=== PATIENT | male | born 1940 | race Asian ===

== ENCOUNTER 2017-12-01 13:52 | Inpatient (IN) | payer OTHER, MEDICARE ==
--- NOTE | 2017-12-01 14:26 | PDOC ---
History of Present Illness - General Chief Complaint: Irregular Heart Beat Stated Complaint: PALPITATIONS Time Seen by Provider: 12/01/17 14:24 History Source: Patient Exam Limitations: No Limitations - History of Present Illness Initial Comments: 12/01/17 14:37 CHIEF COMPLAINT: Palpitations HISTORY OF PRESENT ILLNESS: This is a 77-year-old male with a history of HTN, HLD, and NIDDM who presents with palpitations and mild diaphoresis since yesterday. Symptoms started while he was brushing his teeth and have been persistent. He reports he has had similar symptoms intermittently for the past year, initially once a month, and now more frequently. He denies shortness of breath, chest pain, nausea/vomiting, lower extremity edema, fevers/chills, or any other symptoms. Vital signs on arrival are notable for heart rate of 148, irregular. PCP: Dr. Bailey Smoking: None Alcohol: Never Social history: , works as a manual lathe machinist. REVIEW OF SYSTEMS: GENERAL/CONSTITUTIONAL: No fever or chills. No weakness. No weight change. HEAD, EYES, EARS, NOSE AND THROAT: No change in vision. No ear pain or discharge. No sore throat. CARDIOVASCULAR: See HPI. RESPIRATORY: No cough, wheezing, or shortness of breath. GASTROINTESTINAL: No nausea, vomiting, diarrhea or constipation. GENITOURINARY: No dysuria, frequency, or change in urination. MUSCULOSKELETAL: No joint or muscle swelling or pain. No neck or back pain. SKIN: No rash or easy bruising. NEUROLOGIC: No headache, vertigo, loss of consciousness, or loss of sensation. PSYCHIATRIC: No depression or anxiety. ENDOCRINE: No increased thirst. No abnormal weight change. HEMATOLOGIC/LYMPHATIC: No anemia, easy bleeding, or history of blood clots. ALLERGIC/IMMUNOLOGIC: No hives or skin allergy. No latex allergy. PHYSICAL EXAM: GENERAL: The patient is awake, alert, and fully oriented, in no acute distress. HEAD: Normal with no signs of trauma. ENT: Pupils equal, round and reactive to light, extraocular movements intact, sclera anicteric, conjunctiva clear. Neck supple. LUNGS: Clear to auscultation bilaterally. Normal excursion. No respiratory distress or use of accessory muscles. CV: Irregular rhythm, tachycardic, S1/S2, no MRG. Cap refill < 2 sec. ABDOMEN: Soft, non-distended, non-tender. EXTREMITIES: Normal range of motion, no edema. NEUROLOGICAL: Normal speech, normal gait. CN II-XII grossly intact. PSYCH: Normal mood, normal affect. SKIN: Warm, moist, normal turgor, no rashes or lesions noted. Past History - Past Medical History Allergies/Adverse Reactions: Allergies Allergy/AdvReac Type Severity Reaction Status Date / Time No Known Allergies Allergy Verified 12/01/17 14:01 Home Medications: Ambulatory Orders Apixaban [Eliquis] 5 mg PO BID #30 tablet 12/01/17 Aspirin 81 mg PO DAILY 12/01/17 Diltiazem [Cardizem -] 30 mg PO QID #28 tablet 12/01/17 Glimepiride 2 mg PO ASDIR 12/01/17 Losartan Potassium 50 mg PO DAILY 12/01/17 Metformin HCl [Metformin HCl ER] 1,000 mg PO ASDIR 12/01/17 Metoprolol Succinate 50 mg PO ASDIR 12/01/17 Simvastatin 20 mg PO DAILY 12/01/17 COPD: No Diabetes: Yes (NIDM) HTN: Yes Hypercholesterolemia: Yes - Immunization History Immunization Up to Date: Yes - Suicide/Smoking/Psychosocial Hx Smoking History: Never smoked Information on smoking cessation initiated: No Hx Alcohol Use: No Drug/Substance Use Hx: No Substance Use Type: None *Physical Exam - Vital Signs Last Vital Signs Temp Pulse Resp BP Pulse Ox 98.2 F 141 H 18 118/62 98 12/01/17 14:02 12/01/17 14:02 12/01/17 14:02 12/01/17 14:02 12/01/17 14:02 ED Treatment Course - LABORATORY CBC & Chemistry Diagram: 12/02/17 07:20 12/02/17 07:20 - RADIOLOGY Radiology Studies Ordered: Category Date Time Status CHEST X-RAY PORTABLE* [RAD] Stat Radiology 12/01/17 14:25 Ordered Medical Decision Making - Medical Decision Making 12/01/17 14:43 A/P: 77-year-old male with palpitations and tachycardia (HR 140-160 on monitor). EKG shows narrow complex tachycardia, likely aflutter with 2:1 conduction. Will give Cardizem 10 mg IV push (patient is normotensive) and repeat EKG. -Chest x-ray -Labs including CBC, CMP, troponin, TSH, BNP -Echocardiogram -Reassess 12/01/17 14:50 HR 125-135 after Cardizem. Repeat blood pressure 128/74. Will give additional 10 mg Cardizem. 12/01/17 15:01 Repeat HR 105-115 at rest. Patient is asymptomatic. Repeat EKG: Atrial flutter with ventricular rate 113. 12/01/17 15:07 [id number]. Will give Lovenox pending echo. Will request telemetry observation to follow up echocardiogram, ensure rate control, and initiate anticoagulation. 12/01/17 15:31 Blood glucose 369. Regular insulin 8 units sq ordered. 12/01/17 16:48 Reviewed anticoagulation risks/benefits and need for observation using [employer] Customer Training Specialist [id number]. Discussed with Dr. Bailey. Ventricular rate in 150s. Will start Cardizem gtt. *DC/Admit/Observation/Transfer Diagnosis at time of Disposition: Atrial flutter with rapid ventricular response - Discharge Dispostion Condition at time of disposition: Guarded Decision to Admit order: Yes - Prescriptions - Referrals - Patient Instructions - Post Discharge Activity
[2017-12-01] MEDS ORDERED: dilTIAZem HCL 50 MG/10 ML - 10 ML VIAL IVPUSH ONE ×2 (14:28→14:50)
[2017-12-01 14:44] LABS: BASO % 0.9 % (0-2.0); HEMATOCRIT 35.4 % (35.4-49); HEMOGLOBIN 11.5 GM/dL (11.7-16.9); LYMPH % 22.3 % (8-40); MCH 28.2 pg (25.7-33.7); MCHC 32.4 g/dl (32.0-35.9); MEAN CELL VOLUME 87.1 fl (80-96); MONO % 5.3 % (3.8-10.2); NEUT % 67.5 % (42.8-82.8); PLATELET COUNT 312 K/MM3 (134-434); RBC 4.06 M/mm3 (4.00-5.60); RDW 13.1 % (11.9-15.9); WHITE BLOOD COUNT 9.3 K/mm3 (4.0-10.0)
[2017-12-01 14:51] LABS: INR 0.97 (0.83-1.09); PROTHROMBIN TIME (PATIENT) 11.4 SEC (9.7-13.0)
[2017-12-01] MEDS ORDERED: dilTIAZem HCL 30 MG TABLET (FP) PO ONE (15:00)
[2017-12-01] MEDS ORDERED: SODIUM CHLORIDE 1,000 ML IV SCH (15:00)
[2017-12-01] MEDS ORDERED: dilTIAZem HCL 30 MG TABLET (FP) ONE (15:03)
[2017-12-01] MEDS ORDERED: ENOXAPARIN NA (PORCINE) 80 MG/0.8 ML DISP.SYRIN SQ ONE (15:11)
[2017-12-01] MEDS ORDERED: ENOXAPARIN NA (PORCINE) 30 MG/0.3 ML DISP.SYRIN SQ ONE (15:20)
[2017-12-01] MEDS ORDERED: ENOXAPARIN NA (PORCINE) 40 MG/0.4 ML DISP.SYRIN SQ ONE (15:21)
[2017-12-01 15:25] LABS: ALBUMIN 3.5 g/dl (3.4-5.0); ALK PHOS 95 U/L (45-117); ANION GAP 9 MMOL/L (8-16); BILIRUBIN,TOTAL 0.2 mg/dL (0.2-1); BLOOD UREA NITROGEN 19 mg/dL (7-18); CALCIUM 8.9 mg/dL (8.5-10.1); CHLORIDE 103 mmol/L (98-107); CO2 22 mmol/L (21-32); CREATININE 1.2 mg/dL (0.55-1.3); POTASSIUM 4.4 mmol/L (3.5-5.1); SGOT/AST 11 U/L (15-37); SGPT/ALT 17 U/L (13-61); SODIUM 134 mmol/L (136-145); TOT PROT 7.2 g/dl (6.4-8.2)
[2017-12-01 15:27] LABS: GLUCOSE,RANDOM 369 mg/dL (74-106)
[2017-12-01] MEDS ORDERED: INSULIN REGULAR HUMAN 100 UNITS/ML *VIAL SQ ONE (15:30)
[2017-12-01] MEDS ORDERED: INSULIN (NOVOLOG) ASPART 100 UNITS/ML 10ML VIAL ONE ×3 (15:34→22:42)
[2017-12-01] MEDS: DILTIAZEM INJECTION 125 MG in SODIUM CHLORIDE 100 ML IVPB SCH (17:44)
--- NOTE | 2017-12-01 18:39 | HP ---
CHIEF COMPLAINT: palpitations PCP: Dr. Bailey HISTORY OF PRESENT ILLNESS: Patient is a 77 year old male with a past medical history of hypertension, hyperlipidemia and diabetes. He presents to the ED today with complaints of palpitations and mild diaphoresis. Patient reports a history of feeling frequent palpitations in the past year that spontaneously ceased when he would lay down and rest. However, in the past few weeks, the palpitations became more frequent and now with mild diaphoresis. He denies any chest pain, denies shortness of breath, nausea or vomiting. No abdominal pain, fever or chills. In the ED he was mildly anxious and needed frequent encouragement to allow us to treat him. Explained to him that untreated atrial fibrillation puts him at risk for stroke. Explained plan of care and that he needs to be evaluated by a sterilizer machine operator. On manager cardiac cath, he remains in atrial fibrillation with RVR between 110-150s. He was given Cardizem 10mg iv pushes in the ED and now on a cardizem drip. ER course was notable for: (1) atrial fibrillation (2) cardizem drip, cardizem 10mg iv pushes (3) lovenox 70mg PAST MEDICAL HISTORY: hypertension, hyperlipidemia and diabetes Social History: Smoking: n/a Alcohol: n/a Drugs: n/a Family History: Allergies No Known Allergies Allergy (Verified 12/01/17 14:01 HOME MEDICATIONS: Home Medications Medication Instructions Recorded Apixaban [Eliquis] 5 mg PO BID #30 tablet 12/01/17 Aspirin 81 mg PO DAILY 12/01/17 Diltiazem [Cardizem -] 30 mg PO QID #28 tablet 12/01/17 Glimepiride 2 mg PO ASDIR 12/01/17 Losartan Potassium 50 mg PO DAILY 12/01/17 Metformin HCl [Metformin HCl ER] 1,000 mg PO ASDIR 12/01/17 Metoprolol Succinate 50 mg PO ASDIR 12/01/17 Simvastatin 20 mg PO DAILY 12/01/17 PHYSICAL EXAMINATION Vital Signs - 24 hr 12/01/17 12/01/17 12/01/17 14:02 14:48 15:01 Temperature 98.2 F Pulse Rate 141 H Pulse Rate [ 151 H 101 H Apical] Respiratory 18 22 H 24 H Rate Blood Pressure 118/62 Blood Pressure 103/67 131/65 [Right Arm] O2 Sat by Pulse 98 98 100 Oximetry (%) 12/01/17 12/01/17 12/01/17 15:37 16:45 17:44 Temperature Pulse Rate 116 H Pulse Rate [ 107 H 106 H Apical] Respiratory 23 H 20 Rate Blood Pressure 134/79 Blood Pressure 127/83 130/66 [Right Arm] O2 Sat by Pulse 97 Oximetry (%) GENERAL: Awake, alert, and fully oriented, in no acute distress. HEAD: Normal with no signs of trauma. EYES: Pupils equal, round and reactive to light, extraocular movements intact, sclera anicteric, conjunctiva clear. No lid lag. EARS, NOSE, THROAT: Ears normal, nares patent, oropharynx clear without exudates. Moist mucous membranes. NECK: Normal range of motion, supple without lymphadenopathy, JVD, or masses. LUNGS: Breath sounds equal, clear to auscultation bilaterally. No wheezes, and no crackles. No accessory muscle use. HEART: irregular, afib with RVR ABDOMEN: Soft, nontender, not distended, normoactive bowel sounds, no guarding, no rebound, no masses. No hepatomegaly or splenomegaly. MUSCULOSKELETAL: Normal range of motion at all joints. No bony deformities or tenderness. No CVA tenderness. UPPER EXTREMITIES: No peripheral edema. LOWER EXTREMITIES: No peripheral edema. NEUROLOGICAL: Normal speech. Normal gait. PSYCHIATRIC: Cooperative. Good eye contact. Appropriate mood and affect. SKIN: Warm, dry, normal turgor, no rashes or lesions noted, normal capillary refill. Laboratory Results - last 24 hr 12/01/17 12/01/17 12/01/17 10:14 14:28 14:28 WBC 9.3 RBC 4.06 Hgb 11.5 L Hct 35.4 MCV 87.1 MCH 28.2 MCHC 32.4 RDW 13.1 Plt Count 312 MPV 7.0 L Absolute Neuts (auto) 6.3 Neutrophils % 67.5 Lymphocytes % 22.3 Monocytes % 5.3 Eosinophils % 4.0 Basophils % 0.9 Nucleated RBC % 0 PT with INR 11.40 INR 0.97 Sodium 134 L Potassium 4.4 Chloride 103 Carbon Dioxide 22 Anion Gap 9 BUN 19 H Creatinine 1.2 Creat Clearance w eGFR 58.40 Random Glucose 369 H* Calcium 8.9 Total Bilirubin 0.2 AST 11 L ALT 17 Alkaline Phosphatase 95 Troponin I < 0.02 B-Natriuretic Peptide 1849.0 H Total Protein 7.2 Albumin 3.5 TSH 1.28 ASSESSMENT/PLAN: Patient is a 77 year old male with a past medical history of hypertension, hyperlipidemia and diabetes. He presents to the ED today with complaints of palpitations and mild diaphoresis. He was found to be in atrial fibrillation with RVR between 110-150s. He was given Cardizem 10mg iv pushes in the ED and now on a cardizem drip. Card: Atrial fibrillation with RVR. Given Cardizem 10mg ivpushes in the ED. EKG with aflutter with 2:1 conduction. BP remains stable. Chest xray without acute process. TSH, BNP, cbc, cmp ordered. Echocardiogram for a.m. Started on cardizem drip Lovenox 70mg BID Monitor on tele Troponin negative, trend two more Cardiology consulted Hypertension. Monitor on cardizem drip. start home meds if not hypotensive. HLD. lipid panel in a.m Endocrine Diabetes. hmg a1c, diabetic diet. novolog. fen diabetic diet monitor electrolytes prophy lovenox 70mg bid full code Visit type - Emergency Visit Emergency Visit: Yes ED Registration Date: 12/01/17 Care time: The patient presented to the Emergency Department on the above date and was hospitalized for further evaluation of their emergent condition. - New Patient This patient is new to me today: Yes Date on this admission: 12/01/17 - Critical Care Critical Care patient: No
[2017-12-01] MEDS ORDERED: ATORVASTATIN CA 40 MG TABLET (FP) ONE (22:08)
[2017-12-01] MEDS ORDERED: HEMOQUE TEST 1 EACH EACH ONE (22:10)
[2017-12-01] MEDS: ATORVASTATIN CA 10 MG TABLET (FP) PO SCH (22:17)
[2017-12-01] MEDS: INSULIN SLIDING SCALE (NOVOLOG) 1 VIAL SQ SCH (22:46)
[2017-12-02] MEDS ORDERED: ENOXAPARIN NA (PORCINE) 80 MG/0.8 ML DISP.SYRIN SQ SCH (04:00)
[2017-12-02] MEDS ORDERED: ENOXAPARIN NA (PORCINE) 80 MG/0.8 ML DISP.SYRIN SQ ONE (04:03)
[2017-12-02] MEDS ORDERED: dilTIAZem HCL 50 MG/10 ML - 10 ML VIAL IVPUSH ONE (05:05)
[2017-12-02] MEDS ORDERED: dilTIAZem HCL 125 MG/25 ML - 25 ML VIAL ONE (05:08)
--- NOTE | 2017-12-02 05:08 | PDOC ---
*Physical Exam - Vital Signs Last Vital Signs Temp Pulse Resp BP Pulse Ox 98.5 F 80 20 144/78 96 12/02/17 02:39 12/02/17 02:39 12/02/17 02:39 12/02/17 02:39 12/02/17 02:39 ED Treatment Course - LABORATORY CBC & Chemistry Diagram: 12/01/17 10:14 12/01/17 14:28 - ADDITIONAL ORDERS Additional order review: 12/01/17 10:14 RBC 4.06 MCV 87.1 MCHC 32.4 RDW 13.1 MPV 7.0 L Neutrophils % 67.5 Lymphocytes % 22.3 Monocytes % 5.3 Eosinophils % 4.0 Basophils % 0.9 - Medications Given in the ED: ED Medications Discontinued Medications Generic Name Dose Route Start Last Admin Trade Name Freq PRN Reason Stop Dose Admin Diltiazem HCl 10 mg 12/01/17 14:28 12/01/17 14:48 Cardizem Injection - IVPUSH 12/01/17 14:29 10 mg ONCE ONE Administration Diltiazem HCl 10 mg 12/01/17 14:50 12/01/17 14:55 Cardizem Injection - IVPUSH 12/01/17 14:51 10 mg ONCE ONE Administration Diltiazem HCl 30 mg 12/01/17 15:00 12/01/17 15:05 Cardizem - PO 12/01/17 15:01 30 mg ONCE ONE Administration Enoxaparin Sodium 70 mg 12/01/17 15:11 12/01/17 15:25 Lovenox - SQ 12/01/17 15:12 70 mg ONCE ONE Administration Sodium Chloride 1,000 mls @ 100 mls/hr 12/01/17 15:00 12/01/17 15:01 Normal Saline - IV 100 mls/hr ASDIR JOSE Administration Insulin Human Regular 8 units 12/01/17 15:30 12/01/17 15:37 Novolin R Vial *For Ivpush Or Iv Drip Only* SQ 12/01/17 15:31 8 units ONCE ONE Administration Medical Decision Making - Critical Care Time Total Critical Care Time (minutes): 30 Critical Care Statement: The care of this patient involved high complexity decision making to prevent further life threatening deterioration of the patient 's condition and/or to evaluate & treat vital organ system(s) failure or risk of failure. - Medical Decision Making 12/02/17 05:06 Pt admitted awaiting bed for afib with RVR. Had been on diltiazem drip but d/c'd , called to bedside for HR 150. Pt asx, no cp/sob. EKG showed svt at 150, likely aflutter v. afib. Team contacted by RN but no immediate response. Will give dose diltiazem 10mg IVP, bp 130 systolic. 12/02/17 05:17 HR improved to 85-90 after diltiazem bolus, remains asx and resting. will restart cardizem gtt, discuss with inpt team. *DC/Admit/Observation/Transfer Diagnosis at time of Disposition: Atrial flutter with rapid ventricular response - Discharge Dispostion Condition at time of disposition: Guarded - Prescriptions - Referrals - Patient Instructions - Post Discharge Activity
[2017-12-02] MEDS: INSULIN SLIDING SCALE (NOVOLOG) 1 VIAL SQ SCH ×4 (06:50→23:11)
[2017-12-02] MEDS ORDERED: INSULIN REGULAR HUMAN 100 UNITS/ML *VIAL ONE (06:52)
[2017-12-02 08:25] LABS: BASO % 0.9 % (0-2.0); EOS % 6.7 % (0-4.5); LYMPH % 23.7 % (8-40); MCH 28.3 pg (25.7-33.7); MCHC 32.4 g/dl (32.0-35.9); MEAN CELL VOLUME 87.3 fl (80-96); MEAN PLT VOLUME 7.7 fl (7.5-11.1); MONO % 5.8 % (3.8-10.2); NEUT % 62.9 % (42.8-82.8); PLATELET COUNT 305 K/MM3 (134-434); RBC 4.24 M/mm3 (4.00-5.60); WHITE BLOOD COUNT 9.7 K/mm3 (4.0-10.0)
[2017-12-02 08:40] VITALS: BMI 24.0
[2017-12-02 08:42] LABS: CHOLESTEROL 135 mg/dL (50-200); HDL CHOLESTEROL 30 mg/dL (40-60); TRIGLYCERIDES 181 mg/dL (0-150)
[2017-12-02 08:52] LABS: ALBUMIN 3.7 g/dl (3.4-5.0); ALK PHOS 80 U/L (45-117); ANION GAP 10 MMOL/L (8-16); BILIRUBIN,TOTAL 0.5 mg/dL (0.2-1); BLOOD UREA NITROGEN 17 mg/dL (7-18); CALCIUM 8.6 mg/dL (8.5-10.1); CHLORIDE 102 mmol/L (98-107); CO2 25 mmol/L (21-32); GLUCOSE,RANDOM 180 mg/dL (74-106); POTASSIUM 4.2 mmol/L (3.5-5.1); SGOT/AST 14 U/L (15-37); SGPT/ALT 15 U/L (13-61); SODIUM 137 mmol/L (136-145); TOT PROT 7.6 g/dl (6.4-8.2)
[2017-12-02] MEDS: LOSARTAN POTASSIUM 50 MG TABLET (FP) PO SCH (09:29)
[2017-12-02] MEDS: ASPIRIN 81 MG CHEWABLE TABLETS PO SCH (09:29)
--- NOTE | 2017-12-02 09:30 | EKG ---
Test Reason : Blood Pressure : / mmHG Vent. Rate : 113 BPM Atrial Rate : 300 BPM P-R Int : 000 ms QRS Dur : 080 ms QT Int : 328 ms P-R-T Axes : -86 047 054 degrees QTc Int : 449 ms ATRIAL FLUTTER WITH VARIABLE A-V BLOCK MINIMAL VOLTAGE CRITERIA FOR LVH, MAY BE NORMAL VARIANT ABNORMAL ECG Confirmed by BRANDIE OTTO MD ([id number]) on 12/02/2017 9:29:35 AM Referred By: Confirmed By:BRANDIE OTTO MD
--- NOTE | 2017-12-02 09:41 | CON.CARD ---
Consult Consult Specialty:: Cardiology Referred by:: Ernesto Reason for Consultation:: afib - History of Present Illness Chief Complaint: afib History of Present Illness: 77M h/o HTN, HLD, DM p/w palpitations and mild diaphoresis. Has frequent palps that resolve with rest, in last few weeks palps more frequent associated with diaphoresis. No cp, palps, sob, edema. In the ER had afib with RVR rates 110s- 150s, received cardizem IV 10 mg and is on cardizem gtt. also received lovenox 70 mg sc x 1. Trop neg x 2. Has had palps several years, a substation operator automatic started him on aspirin and metoprolol 15 years ago for his heart beat but not sure why. has not been on AC before. Palps now more frequent. - Past Medical History Cardio/Vascular: Yes: HTN Endocrine: Yes: Diabetes Mellitus - Alcohol/Substance Use Hx Alcohol Use: No - Smoking History Smoking history: Never smoked Home Medications - Allergies Allergies/Adverse Reactions: Allergies Allergy/AdvReac Type Severity Reaction Status Date / Time No Known Allergies Allergy Verified 12/01/17 14:01 - Home Medications Home Medications: Ambulatory Orders Apixaban [Eliquis] 5 mg PO BID #30 tablet 12/01/17 Aspirin 81 mg PO DAILY 12/01/17 Diltiazem [Cardizem -] 30 mg PO QID #28 tablet 12/01/17 Glimepiride 2 mg PO ASDIR 12/01/17 Losartan Potassium 50 mg PO DAILY 12/01/17 Metformin HCl [Metformin HCl ER] 1,000 mg PO ASDIR 12/01/17 Metoprolol Succinate 50 mg PO ASDIR 12/01/17 Simvastatin 20 mg PO DAILY 12/01/17 Family Disease History - Family Disease History Family History: Unremarkable Vital Signs: Vital Signs Temperature 98.0 F 12/02/17 08:43 Pulse Rate 90 12/02/17 08:43 Respiratory Rate 18 12/02/17 08:47 Blood Pressure 137/78 12/02/17 08:43 O2 Sat by Pulse Oximetry (%) 98 12/02/17 08:47 Constitutional: Yes: Well Nourished, No Distress, Calm Eyes: Yes: Conjunctiva Clear, EOM Intact HENT: Yes: Atraumatic, Normocephalic Neck: Yes: Supple, Trachea Midline Respiratory: Yes: Regular, CTA Bilaterally Gastrointestinal: Yes: Normal Bowel Sounds, Soft Renal/: Yes: WNL Cardiovascular: Yes: Pulse Irregular JVD: No Heart Sounds: Yes: S1, S2 Musculoskeletal: Yes: WNL Extremities: Yes: WNL Edema: No Peripheral Pulses WNL: Yes Peripheral Pulses: 2+ Left Doralis Pedis, 2+ Right Dorsalis Pedis Integumentary: Yes: WNL Neurological: Yes: Alert, Oriented ...Motor Strength: WNL Psychiatric: Yes: Alert, Oriented - Other Data Labs, Other Data: CBC, BMP 12/02/17 07:20 12/02/17 07:20 INR, PTT INR 0.97 (0.83-1.09) 12/01/17 14:28 Troponin, BNP 12/01/17 12/01/17 12/02/17 14:28 19:37 07:20 Troponin I < 0.02 < 0.02 < 0.02 B-Natriuretic Peptide 1849.0 H Troponin, BNP 12/01/17 12/01/17 12/02/17 14:28 19:37 07:20 Troponin I < 0.02 < 0.02 < 0.02 B-Natriuretic Peptide 1849.0 H Assessment/Plan EKG atrial flutter rate 113 bpm echo 11/2017: Ef 50-55%, mild MR, mild TR tele: aflutter 110s-150s, currently 90s 77M h/o HTN, HLD, DM p/w palpitations and mild diaphoresis with afib atrial flutter - unclear is this is new dx, had been told 15 years ago he had an irregular heart beat and was on metoprolol, never on AC - rate improving with diltiazem gtt, starting diltiazem 30 mg PO Q6H, uptitrate as tolerated and wean off diltiazem gtt, goal HR 90s-110s - will transition to eliquis 5 mg BID, received lovenox in ER - discussed case with Dr. Herman, [place] [facility] [place] for [place] evaluation for ablation HTN - stable continue metoprolol and losartan HLD - continue statin DM - manage per primary team
--- NOTE | 2017-12-02 10:36 | ECHO ---
Name: DORCAS URBINA Exam:Adult Echocardiogram Study Date: 12/02/2017 08:31 AM Age: 77 yrs Reason For Study: ATRIAL FLUTTER Height: 69 in Weight: 162 lb BSA: 1.9 m2 MMode/2D Measurements & Calculations IVSd: 1.1 cm Ao root diam: 2.9 cm LVIDd: 3.7 cm LA dimension: 3.1 cm LVIDs: 2.1 cm LVPWd: 0.98 cm LVPWs: 1.2 cm EDV(Teich): 57.4 ml ESV(Teich): 13.7 ml Doppler Measurements & Calculations Ao V2 max: 128.5 cm/sec LV V1 max P.2 mmHg Ao max P.6 mmHg LV V1 max: 89.3 cm/sec TR max price: 237.8 cm/sec PA V2 max: 112.0 cm/sec TR max P.7 mmHg PA max P.0 mmHg Left Ventricle Left ventricular systolic function is grossly normal. Ejection Fraction = 50-55%. Right Ventricle The right ventricle is normal in size and function. Atria The left atrium is not well visualized. Mitral Valve The mitral valve is grossly normal. There is no mitral valve stenosis. There is mild mitral regurgita tion. Tricuspid Valve The tricuspid valve is not well visualized, but is grossly normal. There is mild tricuspid regurgitat ion. Right ventricular systolic pressure is normal. Aortic Valve There is mild aortic sclerosis.;. No hemodynamically significant valvular aortic stenosis. No aortic regurgitation is present. Pulmonic Valve The pulmonic valve is not well seen, but is grossly normal. There is no pulmonic valvular stenosis. T here is no pulmonic valvular regurgitation. Great Vessels The aortic root is normal size. Pericardium/Pleura There is no pericardial effusion. Interpretation Summary Left ventricular systolic function is grossly normal. Ejection Fraction = 50-55%. The right ventricle is normal in size and function. There is mild mitral regurgitation. There is mild tricuspid regurgitation. Right ventricular systolic pressure is normal. There is mild aortic sclerosis.; There is no pericardial effusion. MD Ronan Porter 12/02/2017 10:36 AM
[2017-12-02] MEDS ORDERED: dilTIAZem HCL 30 MG TABLET (FP) ONE (11:50)
[2017-12-02] MEDS ORDERED: INSULIN (NOVOLOG) ASPART 100 UNITS/ML 10ML VIAL ONE (11:50)
[2017-12-02] MEDS: dilTIAZem HCL 30 MG TABLET (FP) PO SCH ×3 (12:18→23:11)
[2017-12-02] MEDS ORDERED: PNEUMOC 13-VAL CONJ-DIP CRM/PF 0.5 ML DISP.SYRIN IM ONE (16:00)
[2017-12-02] MEDS ORDERED: FLU VACCINE QUAD 60 MCG/0.5 ML (MDV 18-19) IM ONE (16:00)
--- NOTE | 2017-12-02 18:01 | PN ---
Physical Exam: SUBJECTIVE: Patient seen and examined, lungs clear. feels well, no chest pain. OBJECTIVE: Vital Signs Period Temp Pulse Resp BP Sys/Forrest Pulse Ox Last 24 Hr 97.9 F-98.9 F 18-132 18-20 106-144/52-97 96-98 GENERAL: Awake, alert, and fully oriented, in no acute distress. HEAD: Normal with no signs of trauma. EYES: Pupils equal, round and reactive to light, extraocular movements intact, sclera anicteric, conjunctiva clear. No lid lag. EARS, NOSE, THROAT: Ears normal, nares patent, oropharynx clear without exudates. Moist mucous membranes. NECK: Normal range of motion, supple without lymphadenopathy, JVD, or masses. LUNGS: Breath sounds equal, clear to auscultation bilaterally. No wheezes, and no crackles. No accessory muscle use. HEART: irregular, afib with RVR ABDOMEN: Soft, nontender, not distended, normoactive bowel sounds, no guarding, no rebound, no masses. No hepatomegaly or splenomegaly. MUSCULOSKELETAL: Normal range of motion at all joints. No bony deformities or tenderness. No CVA tenderness. UPPER EXTREMITIES: No peripheral edema. LOWER EXTREMITIES: No peripheral edema. NEUROLOGICAL: Normal speech. Normal gait. PSYCHIATRIC: Cooperative. Good eye contact. Appropriate mood and affect. SKIN: Warm, dry, normal turgor, no rashes or lesions noted, normal capillary refill. Laboratory Results - last 24 hr 12/01/17 12/01/17 12/02/17 19:37 22:16 06:49 WBC RBC Hgb Hct MCV MCH MCHC RDW Plt Count MPV Absolute Neuts (auto) Neutrophils % Lymphocytes % Monocytes % Eosinophils % Basophils % Nucleated RBC % Sodium Potassium Chloride Carbon Dioxide Anion Gap BUN Creatinine Creat Clearance w eGFR POC Glucometer [phone] Random Glucose Hemoglobin A1c % Calcium Magnesium Total Bilirubin AST ALT Alkaline Phosphatase Troponin I < 0.02 Total Protein Albumin Triglycerides Cholesterol Total LDL Cholesterol HDL Cholesterol 12/02/17 12/02/17 12/02/17 07:20 07:20 07:20 WBC 9.7 RBC 4.24 Hgb 12.0 Hct 37.0 MCV 87.3 MCH 28.3 MCHC 32.4 RDW 13.0 Plt Count 305 MPV 7.7 Absolute Neuts (auto) 6.1 Neutrophils % 62.9 Lymphocytes % 23.7 Monocytes % 5.8 Eosinophils % 6.7 H Basophils % 0.9 Nucleated RBC % 0 Sodium 137 Potassium 4.2 Chloride 102 Carbon Dioxide 25 Anion Gap 10 BUN 17 Creatinine 1.0 Creat Clearance w eGFR > 60 POC Glucometer Random Glucose 180 H Hemoglobin A1c % Calcium 8.6 Magnesium 2.0 Total Bilirubin 0.5 AST 14 L ALT 15 Alkaline Phosphatase 80 Troponin I < 0.02 Total Protein 7.6 Albumin 3.7 Triglycerides 181 H Cholesterol 135 Total LDL Cholesterol 91 HDL Cholesterol 30 L 12/02/17 12/02/17 07:20 11:44 WBC RBC Hgb Hct MCV MCH MCHC RDW Plt Count MPV Absolute Neuts (auto) Neutrophils % Lymphocytes % Monocytes % Eosinophils % Basophils % Nucleated RBC % Sodium Potassium Chloride Carbon Dioxide Anion Gap BUN Creatinine Creat Clearance w eGFR POC Glucometer [phone] Random Glucose Hemoglobin A1c % 8.1 H Calcium Magnesium Total Bilirubin AST ALT Alkaline Phosphatase Troponin I Total Protein Albumin Triglycerides Cholesterol Total LDL Cholesterol HDL Cholesterol Active Medications Generic Name Dose Route Start Last Admin Trade Name Enzoq PRN Reason Stop Dose Admin Apixaban 5 mg 12/02/17 22:00 Eliquis - PO BID JOSE Aspirin 81 mg 12/02/17 10:00 12/02/17 09:29 Asa - PO 81 mg DAILY JOSE Administration Atorvastatin Calcium 20 mg 12/01/17 22:00 12/01/17 22:17 Lipitor - PO 20 mg HS JOSE Administration Diltiazem HCl 30 mg 12/02/17 12:00 12/02/17 12:18 Cardizem - PO 30 mg Q6HPO JOSE Administration Diltiazem HCl 125 mg/ Sodium 125 mls @ 5 mls/hr 12/01/17 17:00 12/02/17 13:52 Chloride IVPB 0 mg/hr TITR JOSE 0 mls/hr Titration Protocol 5 MG/HR Insulin Aspart 1 vial 12/01/17 22:00 12/02/17 17:56 Novolog Vial Sliding Scale - SQ Not Given ACHS JOSE Protocol Losartan Potassium 50 mg 12/02/17 10:00 12/02/17 09:29 Cozaar - PO 50 mg DAILY JOSE Administration Metoprolol Succinate 50 mg 12/02/17 10:00 12/02/17 09:29 Toprol Xl - PO 50 mg DAILY JOSE Administration ASSESSMENT/PLAN: Patient is a 77 year old male with a past medical history of hypertension, hyperlipidemia and diabetes. He presents to the ED today with complaints of palpitations and mild diaphoresis. He was found to be in atrial fibrillation with RVR between 110-150s. He was given Cardizem 10mg iv pushes in the ED and now on a cardizem drip. Card: Atrial fibrillation with RVR. echo 12/15: Ef 50-55%, mild MR, mild TR being weaned off cardizem drp. started on PO cardizem. lovenox discontinued, now on eliquis Monitor rate on tele Troponin negative Cardiology following, outpatient follow up for possible ablation. HLD, lipid panel reviewed, started on statin therapy. Endocrine Diabetes. hmg a1c, diabetic diet. novolog. fen diabetic diet monitor electrolytes prophy eliquis full code Visit type - Emergency Visit Emergency Visit: Yes ED Registration Date: 12/01/17 Care time: The patient presented to the Emergency Department on the above date and was hospitalized for further evaluation of their emergent condition. - New Patient This patient is new to me today: No - Critical Care Critical Care patient: No - Discharge Referral Referred to [facility] No
[2017-12-02] MEDS: ATORVASTATIN CA 10 MG TABLET (FP) PO SCH (23:11)
[2017-12-02] MEDS: APIXABAN 5 MG TABLET PO SCH (23:11)
[2017-12-02] MEDS: DILTIAZEM INJECTION 125 MG in SODIUM CHLORIDE 100 ML IVPB SCH (23:13)
[2017-12-03] MEDS: dilTIAZem HCL 30 MG TABLET (FP) PO SCH (06:28)
[2017-12-03] MEDS: INSULIN SLIDING SCALE (NOVOLOG) 1 VIAL SQ SCH ×4 (06:31→22:16)
--- NOTE | 2017-12-03 09:21 | PN ---
Physical Exam: SUBJECTIVE: Patient seen and examined at the bedside. feels well, but when ambulating having palpitations. OBJECTIVE: had a run of atrial fib 160s ,to be given cardizem 10-mg push, now afib 114s- 120s Period Temp Pulse Resp BP Sys/Forrest Pulse Ox Last 24 Hr 97.9 F-99.0 F 18-125 18-20 106-145/62-97 99 GENERAL: Awake, alert, and fully oriented, in no acute distress. HEAD: Normal with no signs of trauma. EYES: Pupils equal, round and reactive to light, extraocular movements intact, sclera anicteric, conjunctiva clear. No lid lag. EARS, NOSE, THROAT: Ears normal, nares patent, oropharynx clear without exudates. Moist mucous membranes. NECK: Normal range of motion, supple without lymphadenopathy, JVD, or masses. LUNGS: Breath sounds equal, clear to auscultation bilaterally. No wheezes, and no crackles. No accessory muscle use. HEART: irregular, afib with RVR ABDOMEN: Soft, nontender, not distended, normoactive bowel sounds, no guarding, no rebound, no masses. No hepatomegaly or splenomegaly. MUSCULOSKELETAL: Normal range of motion at all joints. No bony deformities or tenderness. No CVA tenderness. UPPER EXTREMITIES: No peripheral edema. LOWER EXTREMITIES: No peripheral edema. NEUROLOGICAL: Normal speech. Normal gait. PSYCHIATRIC: Cooperative. Good eye contact. Appropriate mood and affect. SKIN: Warm, dry, normal turgor, no rashes or lesions noted, normal capillary refill. Laboratory Results - last 24 hr 12/02/17 12/02/17 12/03/17 11:44 23:09 05:57 POC Glucometer [id number] 201 Active Medications Generic Name Dose Route Start Last Admin Trade Name Freq PRN Reason Stop Dose Admin Apixaban 5 mg 12/02/17 22:00 12/02/17 23:11 Eliquis - PO 5 mg BID JOSE Administration Aspirin 81 mg 12/02/17 10:12/02/17 09:29 Asa - PO 81 mg DAILY JOSE Administration Atorvastatin Calcium 20 mg 12/01/17 22:00 12/02/17 23:11 Lipitor - PO 20 mg HS JOSE Administration Diltiazem HCl 30 mg 12/02/17 12:00 12/03/17 06:28 Cardizem - PO 30 mg Q6HPO JOSE Administration Diltiazem HCl 125 mg/ Sodium 125 mls @ 5 mls/hr 12/01/17 17:00 12/02/17 23:13 Chloride IVPB Not Given TITR JOSE Protocol 5 MG/HR Insulin Aspart 1 vial 12/01/17 22:00 12/03/17 06:31 Novolog Vial Sliding Scale - SQ 4 units ACHS JOSE Administration Protocol Losartan Potassium 50 mg 12/02/17 10:00 12/02/17 09:29 Cozaar - PO 50 mg DAILY JOSE Administration Metoprolol Succinate 50 mg 12/02/17 10:00 12/02/17 09:29 Toprol Xl - PO 50 mg DAILY JOSE Administration ASSESSMENT/PLAN: Patient is a 77 year old male with a past medical history of hypertension, hyperlipidemia and diabetes. He presents to the ED today with complaints of palpitations and mild diaphoresis. He was found to be in atrial fibrillation with RVR between 110-150s. He was given Cardizem 10mg iv pushes in the ED and now on a cardizem drip. Problem list Hypertension Hyperlipidemia Diabetes Card: Atrial fibrillation with RVR. Still not rate controlled echo 12/15: Ef 50-55%, mild MR, mild TR Increased cardizem 60mg q6, metoprolol increased to 50mg bid. lovenox discontinued, now on eliquis Monitor rate on telemonitoring. Troponin negative Cardiology following, outpatient follow up for possible ablation once rate controlled. HLD, lipid panel reviewed, started on statin therapy. Endocrine Diabetes. hmg a1c 8.1, diabetic diet. novolog, added levemir. fen diabetic diet monitor electrolytes prophy eliquis full code Visit type - Emergency Visit Emergency Visit: Yes ED Registration Date: 12/01/17 Care time: The patient presented to the Emergency Department on the above date and was hospitalized for further evaluation of their emergent condition. - New Patient This patient is new to me today: No - Critical Care Critical Care patient: No - Discharge Referral Referred to [facility] No
[2017-12-03] MEDS ORDERED: dilTIAZem HCL 30 MG TABLET (FP) PO ONE (09:30)
[2017-12-03] MEDS ORDERED: dilTIAZem HCL 25 MG/5 ML - 5 ML VIAL IV ONE (09:30)
[2017-12-03] MEDS ORDERED: dilTIAZem HCL 50 MG/10 ML - 10 ML VIAL IVPUSH PRN (10:02)
[2017-12-03 10:03] LABS: EOS % 3.1 % (0-4.5); HEMATOCRIT 36.9 % (35.4-49); HEMOGLOBIN 11.6 GM/dL (11.7-16.9); LYMPH % 17.9 % (8-40); MCH 27.7 pg (25.7-33.7); MCHC 31.4 g/dl (32.0-35.9); MEAN CELL VOLUME 88.1 fl (80-96); MEAN PLT VOLUME 7.4 fl (7.5-11.1); MONO % 6.4 % (3.8-10.2); NEUT % 71.6 % (42.8-82.8); PLATELET COUNT 331 K/MM3 (134-434); RBC 4.19 M/mm3 (4.00-5.60); RDW 12.8 % (11.9-15.9); WHITE BLOOD COUNT 11.1 K/mm3 (4.0-10.0)
--- NOTE | 2017-12-03 10:04 | PN ---
Progress Note (short form) - Note Progress Note: s: feels palps and skipping occasonially. no chest pain, dyspnea, edema Current Medications Apixaban (Eliquis -) 5 mg PO BID [facility] Last Admin: 12/02/17 23:11 Dose: 5 mg Aspirin (Asa -) 81 mg PO DAILY [facility] Last Admin: 12/02/17 09:29 Dose: 81 mg Atorvastatin Calcium (Lipitor -) 20 mg PO HS [facility] Last Admin: 12/02/17 23:11 Dose: 20 mg Diltiazem HCl (Cardizem -) 60 mg PO Q6HPO [facility] Diltiazem HCl (Cardizem Injection -) 10 mg IVPUSH Q4H PRN PRN Reason: Tachycardia, HR >140 bpm Diltiazem HCl 125 mg/ Sodium (Chloride) 125 mls @ 5 mls/hr IVPB TITR [facility]; Protocol Last Admin: 12/02/17 23:13 Dose: Not Given Insulin Aspart (Novolog Vial Sliding Scale -) 1 vial SQ ACHS [facility]; Protocol Last Admin: 12/03/17 06:31 Dose: 4 units Losartan Potassium (Cozaar -) 50 mg PO DAILY [facility] Last Admin: 12/02/17 09:29 Dose: 50 mg Metoprolol Succinate (Toprol Xl -) 50 mg PO DAILY [facility] Last Admin: 12/02/17 09:29 Dose: 50 mg Family History: Unremarkable Vital Signs: Vital Signs Period Temp Pulse Resp BP Sys/Forrest Pulse Ox Last 24 Hr 97.9 F-99.0 F 18-125 18-20 106-145/62-97 99 Constitutional: Yes: Well Nourished, No Distress, Calm Eyes: Yes: Conjunctiva Clear, EOM Intact HENT: Yes: Atraumatic, Normocephalic Neck: Yes: Supple, Trachea Midline Respiratory: Yes: Regular, CTA Bilaterally Gastrointestinal: Yes: Normal Bowel Sounds, Soft Renal/: Yes: WNL Cardiovascular: Yes: Pulse Irregular JVD: No Heart Sounds: Yes: S1, S2 Musculoskeletal: Yes: WNL Extremities: Yes: WNL Edema: No Peripheral Pulses WNL: Yes Peripheral Pulses: 2+ Left Doralis Pedis, 2+ Right Dorsalis Pedis Integumentary: Yes: WNL Neurological: Yes: Alert, Oriented ...Motor Strength: WNL Psychiatric: Yes: Alert, Oriented Assessment/Plan EKG atrial flutter rate 113 bpm echo 11/2017: Ef 50-55%, mild MR, mild TR tele: aflutter 100s-110s, episodes 150s 77M h/o HTN, HLD, DM p/w palpitations and mild diaphoresis with afib atrial flutter - unclear is this is new dx, had been told 15 years ago he had an irregular heart beat and was on metoprolol, never on AC - discussed case with Dr. Herman, EP, [facility] [place], will refer for outpatient evaluation for ablation - if unable to control rate will consider CARLOS/cardioversion, discussed with patient and family - continue eliquis 5 mg BID - continue metoprolol, increase to 50 mg BID - diltiazem increased to 60 mg Q6H, will continue to uptitrate as tolerated HTN - stable continue metoprolol and losartan HLD - continue statin DM - manage per primary team
[2017-12-03 10:40] LABS: ALBUMIN 3.5 g/dl (3.4-5.0); ALK PHOS 85 U/L (45-117); ANION GAP 10 MMOL/L (8-16); BILIRUBIN,TOTAL 0.4 mg/dL (0.2-1); BLOOD UREA NITROGEN 23 mg/dL (7-18); CALCIUM 8.7 mg/dL (8.5-10.1); CHLORIDE 101 mmol/L (98-107); CO2 23 mmol/L (21-32); CREATININE 1.4 mg/dL (0.55-1.3); POTASSIUM 4.4 mmol/L (3.5-5.1); SGOT/AST 12 U/L (15-37); SGPT/ALT 14 U/L (13-61); SODIUM 134 mmol/L (136-145); TOT PROT 7.5 g/dl (6.4-8.2)
[2017-12-03 10:43] LABS: GLUCOSE,RANDOM 366 mg/dL (74-106)
[2017-12-03] MEDS: LOSARTAN POTASSIUM 50 MG TABLET (FP) PO SCH (11:04)
[2017-12-03] MEDS: ASPIRIN 81 MG CHEWABLE TABLETS PO SCH (11:04)
[2017-12-03] MEDS: APIXABAN 5 MG TABLET PO SCH ×2 (11:04→22:11)
[2017-12-03] MEDS ORDERED: INSULIN (NOVOLOG) ASPART 100 UNITS/ML 10ML VIAL ONE ×2 (11:49→18:14)
[2017-12-03] MEDS: dilTIAZem HCL 60 MG TABLET (FP) PO SCH ×2 (12:05→17:46)
[2017-12-03] MEDS ORDERED: GLIMEPIRIDE 2 MG TABLET (FP) PO SCH (15:45)
[2017-12-03] MEDS: DILTIAZEM INJECTION 125 MG in SODIUM CHLORIDE 100 ML IVPB SCH (17:03)
--- NOTE | 2017-12-03 17:22 | EKG ---
Test Reason : Blood Pressure : / mmHG Vent. Rate : 153 BPM Atrial Rate : 153 BPM P-R Int : 000 ms QRS Dur : 088 ms QT Int : 266 ms P-R-T Axes : 000 050 020 degrees QTc Int : 424 ms SUPRAVENTRICULAR TACHYCARDIA CANNOT EXCLUDE PAROXYSMAL ATRIAL FLUTTER ABNORMAL ECG WHEN COMPARED WITH ECG OF 01-DEC-2017 15:00, NO SIGNIFICANT CHANGE WAS FOUND Confirmed by JOSSELYN RESENDIZ, JADA ([id number]) on 12/03/2017 5:21:47 PM Referred By: Confirmed By:JADA ARCOS MD
[2017-12-03] MEDS ORDERED: INSULIN (LEVEMIR) 100 UNITS/ML UNITS SQ SCH (22:00)
[2017-12-03] MEDS: ATORVASTATIN CA 10 MG TABLET (FP) PO SCH (22:11)
[2017-12-04] MEDS: dilTIAZem HCL 60 MG TABLET (FP) PO SCH ×3 (00:41→11:12)
[2017-12-04 05:29] VITALS: TEMP 98.3
[2017-12-04] MEDS ORDERED: INSULIN (NOVOLOG) ASPART 100 UNITS/ML 10ML VIAL ONE (06:28)
[2017-12-04] MEDS: INSULIN SLIDING SCALE (NOVOLOG) 1 VIAL SQ SCH ×2 (06:30→14:23)
[2017-12-04 09:44] LABS: BASO % 0.8 % (0-2.0); EOS % 6.7 % (0-4.5); HEMATOCRIT 33.1 % (35.4-49); HEMOGLOBIN 10.6 GM/dL (11.7-16.9); LYMPH % 22.9 % (8-40); MCH 28.2 pg (25.7-33.7); MCHC 32.2 g/dl (32.0-35.9); MEAN CELL VOLUME 87.8 fl (80-96); MEAN PLT VOLUME 7.4 fl (7.5-11.1); MONO % 6.4 % (3.8-10.2); NEUT % 63.2 % (42.8-82.8); PLATELET COUNT 332 K/MM3 (134-434); RBC 3.77 M/mm3 (4.00-5.60); RDW 13.1 % (11.9-15.9); WHITE BLOOD COUNT 10.4 K/mm3 (4.0-10.0)
--- NOTE | 2017-12-04 10:09 | PN ---
Progress Note (short form) - Note Progress Note: s: feels well, no palps. no chest pain, dyspnea, edema Current Medications Apixaban (Eliquis -) 5 mg PO BID [facility] Last Admin: 12/03/17 22:11 Dose: 5 mg Aspirin (Asa -) 81 mg PO DAILY [facility] Last Admin: 12/03/17 11:04 Dose: 81 mg Atorvastatin Calcium (Lipitor -) 20 mg PO HS [facility] Last Admin: 12/03/17 22:11 Dose: 20 mg Diltiazem HCl (Cardizem -) 60 mg PO Q6HPO [facility] Last Admin: 12/04/17 06:31 Dose: 60 mg Diltiazem HCl (Cardizem Injection -) 10 mg IVPUSH Q4H PRN PRN Reason: Tachycardia, HR >140 bpm Insulin Aspart (Novolog Vial Sliding Scale -) 1 vial SQ [facility]; Protocol Last Admin: 12/04/17 06:30 Dose: 6 units Insulin Detemir (Levemir Vial) 5 units SQ [facility] Last Admin: 12/03/17 22:10 Dose: 5 units Losartan Potassium (Cozaar -) 50 mg PO DAILY [facility] Last Admin: 12/03/17 11:04 Dose: 50 mg Metoprolol Succinate (Toprol Xl -) 50 mg PO BID [facility] Last Admin: 12/03/17 22:11 Dose: 50 mg Family History: Unremarkable Vital Signs: Vital Signs Period Temp Pulse Resp BP Sys/Forrest Pulse Ox Last 24 Hr 98.0 F-98.5 F 92-105 18-20 101-136/57-67 98 Constitutional: Yes: Well Nourished, No Distress, Calm Eyes: Yes: Conjunctiva Clear, EOM Intact HENT: Yes: Atraumatic, Normocephalic Neck: Yes: Supple, Trachea Midline Respiratory: Yes: Regular, CTA Bilaterally Gastrointestinal: Yes: Normal Bowel Sounds, Soft Renal/: Yes: WNL Cardiovascular: Yes: Pulse Irregular JVD: No Heart Sounds: Yes: S1, S2 Musculoskeletal: Yes: WNL Extremities: Yes: WNL Edema: No Peripheral Pulses WNL: Yes Peripheral Pulses: 2+ Left Doralis Pedis, 2+ Right Dorsalis Pedis Integumentary: Yes: WNL Neurological: Yes: Alert, Oriented ...Motor Strength: WNL Psychiatric: Yes: Alert, Oriented Assessment/Plan EKG atrial flutter rate 113 bpm echo 11/2017: Ef 50-55%, mild MR, mild TR tele: aflutter 100s-110s, episodes 150s 77M h/o HTN, HLD, DM p/w palpitations and mild diaphoresis with afib atrial flutter - unclear is this is new dx, had been told 15 years ago he had an irregular heart beat and was on metoprolol, never on AC - discussed case with Dr. Herman, EP, [facility] [place], will refer for outpatient evaluation for ablation - continue eliquis 5 mg BID - rate control improved. continue metoprolol succinate 50 mg BID and transition to cardizem CD 240 mg daily HTN - stable continue metoprolol and losartan HLD - continue statin DM - manage per primary team Stable from cardiac perspective
[2017-12-04] MEDS: LOSARTAN POTASSIUM 50 MG TABLET (FP) PO SCH (11:12)
[2017-12-04] MEDS: APIXABAN 5 MG TABLET PO SCH (11:12)
[2017-12-04] MEDS: ASPIRIN 81 MG CHEWABLE TABLETS PO SCH (11:13)
[2017-12-04 11:15] LABS: ALBUMIN 3.5 g/dl (3.4-5.0); ALK PHOS 75 U/L (45-117); ANION GAP 9 MMOL/L (8-16); BILIRUBIN,TOTAL 0.4 mg/dL (0.2-1); BLOOD UREA NITROGEN 35 mg/dL (7-18); CALCIUM 9.3 mg/dL (8.5-10.1); CHLORIDE 103 mmol/L (98-107); CO2 24 mmol/L (21-32); CREATININE 1.4 mg/dL (0.55-1.3); POTASSIUM 4.3 mmol/L (3.5-5.1); SGOT/AST 13 U/L (15-37); SGPT/ALT 15 U/L (13-61); SODIUM 136 mmol/L (136-145); TOT PROT 7.1 g/dl (6.4-8.2)
[2017-12-04] MEDS ORDERED: SODIUM CHLORIDE 250 ML IV STA (11:23)
--- NOTE | 2017-12-04 11:37 | DS ---
Physical Exam: SUBJECTIVE: Patient seen and examined OBJECTIVE: Vital Signs Period Temp Pulse Resp BP Sys/Forrest Pulse Ox Last 24 Hr 98.0 F-98.5 F 92-105 18-20 101-136/57-67 98 PHYSICAL EXAM GENERAL: Awake, alert, and fully oriented, in no acute distress. HEAD: Normal with no signs of trauma. EYES: Pupils equal, round and reactive to light, extraocular movements intact, sclera anicteric, conjunctiva clear. No lid lag. EARS, NOSE, THROAT: Ears normal, nares patent, oropharynx clear without exudates. Moist mucous membranes. NECK: Normal range of motion, supple without lymphadenopathy, JVD, or masses. LUNGS: Breath sounds equal, clear to auscultation bilaterally. No wheezes, and no crackles. No accessory muscle use. HEART: irregular, afib now controlled. ABDOMEN: Soft, nontender, not distended, normoactive bowel sounds, no guarding, no rebound, no masses. No hepatomegaly or splenomegaly. MUSCULOSKELETAL: Normal range of motion at all joints. No bony deformities or tenderness. No CVA tenderness. UPPER EXTREMITIES: No peripheral edema. LOWER EXTREMITIES: No peripheral edema. NEUROLOGICAL: Normal speech. Normal gait. PSYCHIATRIC: Cooperative. Good eye contact. Appropriate mood and affect. SKIN: Warm, dry, normal turgor, no rashes or lesions noted, normal capillary refill. LABS Laboratory Results - last 24 hr 12/03/17 12/03/17 12/03/17 11:34 16:47 22:02 WBC RBC Hgb Hct MCV MCH MCHC RDW Plt Count MPV Absolute Neuts (auto) Neutrophils % Lymphocytes % Monocytes % Eosinophils % Basophils % Nucleated RBC % Sodium Potassium Chloride Carbon Dioxide Anion Gap BUN Creatinine Creat Clearance w eGFR POC Glucometer 286 248 277 Calcium Total Bilirubin AST ALT Alkaline Phosphatase Total Protein Albumin 12/04/17 12/04/17 12/04/17 06:23 09:10 09:10 WBC 10.4 H RBC 3.77 L Hgb 10.6 L Hct 33.1 L MCV 87.8 MCH 28.2 MCHC 32.2 RDW 13.1 Plt Count 332 MPV 7.4 L Absolute Neuts (auto) 6.6 Neutrophils % 63.2 Lymphocytes % 22.9 D Monocytes % 6.4 Eosinophils % 6.7 H D Basophils % 0.8 Nucleated RBC % 0 Sodium 136 Potassium 4.3 Chloride 103 Carbon Dioxide 24 Anion Gap 9 BUN 35 H Creatinine 1.4 H Creat Clearance w eGFR 48.89 POC Glucometer 218 Calcium 9.3 Total Bilirubin 0.4 AST 13 L ALT 15 Alkaline Phosphatase 75 Total Protein 7.1 Albumin 3.5 HOSPITAL COURSE: Date of Admission:12/03/17 Date of Discharge: 12/04/17 DISCHARGE HOSPITAL COURSE: Patient is a 77 year old male with a past medical history of hypertension, hyperlipidemia and diabetes. He presented to the ED on 12/03/2017 with complaints of palpitations and mild diaphoresis. He was found to be in atrial fibrillation with RVR between 110-150s. He was given Cardizem 10mg iv pushes in the ED and started on a cardizem drip. He was weaned off Cardizem drip and transitioned to PO Cardizem, Metoprolol. He is now rate controlled. imaging: echo 12/15: Ef 50-55%, mild MR, mild TR Problem list Hypertension Hyperlipidemia Diabetes Card: Atrial fibrillation with RVR. Now in Afib 80s>90s. better rate control with the increased dosage of Cardizem. Patient to go home on cardizem 240mg daily, Metoprolol XL 50mg bid and Eliquis 5mg bid (called into patient's pharmacy, and approved through his insurance) Troponins negative Patient to follow cardiology outpatient to follow up for possible ablation. HLD, lipid panel reviewed, on statin therapy. Endocrine Diabetes. hmg a1c 8.1. his BGMs were elevated during hospitalization, but admits to eating outside foods brought in by family. Encouraged patient to monitor his bgms prior to meals, keep a log and bring the log to his PCP. Importance of maintaining his blood sugars <150 stressed. He states he has a home glucometer and will follow this recommendation. Discharge home with follow up from PCP, and cardiology. Discussed with patient son's and who agree with discharge plan. Minutes to complete discharge: 60 Discharge Summary Reason For Visit: A FIB WITH RAPID VENTRICULAR RESPONSE Current Active Problems Atrial flutter with rapid ventricular response (Acute) Condition: Guarded - Instructions Diet, Activity, Other Instructions: Mr. Puckett: You were admitted to [facility] for rapid atrial fibrillation (heart rate is irregular and fast). This is a new diagnosis for you. We also noted that your kidney function was mildly elevated, your blood sugars were high and your triglycerides were also elevated. Here is what we recommend: Atrial fibrillation (fast irregular heart rate). Your heart rate was very fast on admission, now it is controlled. We are controlling your fast rate with the following medications: Cardizem 240mg once per day - NEW PRESCRIPTION Metoprolol 50mg twice per day --->NEW PRESCRIPTION, you were taking it only once per day at home. stop the home dose. Eliquis 5mg twice per day NEW PRESCRIPTION> (this is an anticoagulation-a bleed thinner). Eliquis is a new medication that will help you not develop blood clots. Patients with atrial fibrillation are a high risk for stroke when clots develop. Eliquis is a preventative medication so that you do not develop blood clots in the lungs or your legs. Before you have any invasive procedures, please make sure your doctors know you are on this medication. High blood pressure: Continue taking the Cozaar. continue home dose. High cholesterol: Continue your home statin therapy (atorvastin), but we noted that your triglycerides were high. The best way to control high triglycerides are to avoid fats from the food that we eat. This includes butter, margarines and oils. Please have your cholesterol re-checked with your primary care doctor. High blood sugar: Your sugars were high during your stay. We recommend that you keep track of your blood sugars three times per day, write the number down and present the log to your primary care doctor. Continue taking your metformin. We highly recommend that you abide by a diabetic diet. Kidney function: Your levels were slightly elevated. Continue to hydrate with at least 8 glasses of water and have your levels repeated. We gave you some saline before you left the hospital. I am available for any questions that you may have. Thank you for allowing us to care for you. it is very important that you see Dr. Peres cardiology for further heart workup as well as to assure that your heart remains controlled . thank you. [facility] [phone] Referrals: Gildardo Bailey MD [Primary Care Provider] - Disposition: HOME - Home Medications Comprehensive Discharge Medication List: Ambulatory Orders Apixaban [Eliquis] 5 mg PO BID #30 tablet 12/01/17 Aspirin 81 mg PO DAILY 12/01/17 Diltiazem [Cardizem -] 30 mg PO QID #28 tablet 12/01/17 Glimepiride 2 mg PO ASDIR 12/01/17 Losartan Potassium 50 mg PO DAILY 12/01/17 Metformin HCl [Metformin HCl ER] 1,000 mg PO ASDIR 12/01/17 Metoprolol Succinate 50 mg PO ASDIR 12/01/17 Simvastatin 20 mg PO DAILY 12/01/17 This patient is new to me today: No Emergency Visit: Yes ED Registration Date: 12/03/17 Care time: The patient presented to the Emergency Department on the above date and was hospitalized for further evaluation of their emergent condition. Critical Care patient: No - Discharge Referral Referred to [facility] No
[2017-12-04 11:44] LABS: GLUCOSE,RANDOM 304 mg/dL (74-106)
[2017-12-04 11:45] VITALS: BP 153/63; PULSE 102
== END 2017-12-04 14:26 | disposition home or self-care (01) | DRG 310 ==
LOC: JER 13:52 → UNDOADMOB 15:09 → JERBED 15:09 → INTOOBSV 16:20 → OBSVTOIN 16:20 → J4W 12-02 12:35 → JERBED 12-02 12:35 → J4W 12-03 15:43 → OBSVTOIN 12-03 16:20 → J4W 12-03 16:20 → JERBED 12-03 16:20
PROVIDERS: ADMIT Internal Medicine; ATTEND Nurse Practitioner Family
DX: I48.92 Unspecified atrial flutter (principal); I10 Essential (primary) hypertension; E78.5 Hyperlipidemia, unspecified; E11.9 Type 2 diabetes mellitus without complications; I48.91 Unspecified atrial fibrillation; R00.0 Tachycardia, unspecified
CPT/HCPCS: 36415; 71045-TC-FY; 80053; 80061; 82962; 83036; 83721; 83735; 83880; 84443; 84484; 85025; 85610; 90670; 90688; 93005; 93010; 93306-TC; 99285-25; G0008; G0009; J7030